=== PATIENT | female | born 1940 | race Caucasian/White ===

== ENCOUNTER 2022-10-07 11:20 | Outpatient (CLI) | payer MEDICARE | END 2022-10-07 11:21 | disposition home or self-care (01) | LOC: BURRAD 11:20 | PROVIDERS: ATTEND Neurological Surgery | DX: M47.26 Other spondylosis with radiculopathy, lumbar region (principal); Z98.890 Other specified postprocedural states | CPT/HCPCS: 72100 ==

== ENCOUNTER 2023-01-06 11:11 | Outpatient (CLI) | payer MEDICARE | END 2023-01-06 11:12 | disposition home or self-care (01) | LOC: BURRAD 11:11 | PROVIDERS: ATTEND Neurological Surgery | DX: M48.062 Spinal stenosis, lumbar region with neurogenic claudication (principal); M47.816 Spondylosis without myelopathy or radiculopathy, lumbar region; Z98.1 Arthrodesis status | CPT/HCPCS: 72100 ==